=== PATIENT | male | born 1960 | race American Indian/Alaskan Native ===

== ENCOUNTER 2016-12-07 09:42 | Observation (INO) | payer MEDICARE, OTHER ==
[2016-12-07] MEDS ORDERED: Labetalol 5 mg/ml Inj 20ML IV STA ×2 (10:56→12:20)
[2016-12-07 11:08] LABS: ADD MANUAL DIFF? NO
--- NOTE | 2016-12-07 11:08 | ED PDOC ---
Arrival/HPI - General Chief Complaint: High Blood Pressure Time Seen by Provider: 12/07/16 10:55 Historian: Patient - History of Present Illness Narrative History of Present Illness (Text): 12/07/16 11:06 Cam Sanford is a 56 year old with a history of hypertension, asthma, left hip replacement and HIV, presents to the emergency department complaining of elevated blood pressure, intermittent chest pain and shortness of breath for the past 2 days. Patient states he is on 20 mg Lisinopril for past 2 because he ran out of medication. He also notes that he has been increasingly agitated over the past week, which is unlike him. He also complains of occasional episodes of dizziness which he characterizes as room spinning sensation. Denies fever, chills, nausea, vomiting, diarrhea, urinary symptoms, or any other complaints at this time. Time/Duration: < week (2 days ) Symptom Onset: Gradual Symptom Course: Intermittent Severity Level: Mild Activities at Onset: Light Past Medical History - Provider Review Nursing Documentation Reviewed: Yes - Infectious Disease Hx of Infectious Diseases: None - Tetanus Immunization Tetanus Immunization: Unknown - Cardiac Hx Hypertension: Yes - Pulmonary Hx Asthma: Yes - Neurological Hx Transient Ischemic Attacks (TIA): No - Musculoskeletal/Rheumatological Hx Arthritis: Yes Hx Falls: No - Genitourinary/Gynecological Hx Genitourinary Disorders: Yes Hx Urinary Tract Infection: Yes - Psychiatric Hx Substance Use: No - Surgical History Hx Joint Replacement: Yes (Left hip) - Anesthesia Hx Anesthesia: Yes Hx Anesthesia Reactions: No Family/Social History - Physician Review Nursing Documentation Reviewed: Yes Family/Social History: No Known Family HX Smoking Status: Light Smoker < 10 Cigarettes Daily Hx Alcohol Use: No Hx Substance Use: No Allergies/Home Meds Allergies/Adverse Reactions: Allergies seafood Allergy (Uncoded 12/07/16 10:07) RASH Home Medications: Home Meds Medication Instructions Recorded Confirmed Albuterol HFA [Ventolin HFA 90 0.09 mg IH PRN PRN 03/13/16 06/14/16 mcg/actuation (8 g)] Abacavir/Dolutegravir/Lamivudi 1 tab PO DAILY 03/16/16 06/14/16 [Triumeq Tablet] Aspirin [Aspirin EC] 81 mg PO DAILY 03/16/16 06/14/16 Atorvastatin Calcium [Lipitor] 20 mg PO DIN 03/16/16 06/14/16 Lisinopril/Hydrochlorothiazide 1 tab PO DAILY 03/16/16 06/14/16 [Zestoretic 20-25 mg Tablet] Review of Systems - Physician Review All systems were reviewed & negative as marked: Yes - Review of Systems Constitutional: Normal. absent: Fatigue, Fevers Eyes: absent: Vision Changes, Photophobia Respiratory: Cough. absent: SOB Cardiovascular: Chest Pain Gastrointestinal: Normal. absent: Abdominal Pain, Nausea, Vomiting, Appetite Changes Neurological: Dizziness (room spinning sensation ). absent: Headache Psychiatric: Normal Physical Exam Vital Signs Reviewed: Yes Vital Signs Temp Pulse Resp BP Pulse Ox 12/07/16 12:34 100 H 157/100 H 12/07/16 11:51 57 L 18 183/95 H 96 12/07/16 11:50 64 18 183/110 H 96 12/07/16 11:40 76 18 201/139 H 96 12/07/16 11:39 69 18 163/118 H 96 12/07/16 11:37 75 18 187/105 H 95 12/07/16 11:35 64 18 192/104 H 96 12/07/16 11:34 69 18 200/114 H 96 12/07/16 11:33 69 18 197/125 H 95 12/07/16 11:30 69 18 202/128 H 98 12/07/16 10:41 66 18 170/101 H 99 12/07/16 10:01 98.8 F 80 18 177/105 H 98 12/07/16 09:42 98.8 F 80 18 177/105 H 98 Temperature: Afebrile Blood Pressure: Hypertensive Pulse: Regular Respiratory Rate: Normal Appearance: Positive for: Well-Appearing, Non-Toxic, Comfortable Pain Distress: None Mental Status: Positive for: Alert and Oriented X 3 - Systems Exam Head: Present: Atraumatic, Normocephalic Pupils: Present: PERRL Conjunctiva: Present: Normal Respiratory/Chest: Present: Clear to Auscultation, Good Air Exchange. No: Respiratory Distress, Accessory Muscle Use Cardiovascular: Present: Regular Rate and Rhythm, Normal S1, S2. No: Murmurs Abdomen: Present: Normal Bowel Sounds. No: Tenderness, Distention, Peritoneal Signs Neurological: Present: GCS=15, CN II-XII Intact, Speech Normal Skin: Present: Warm, Dry, Normal Color. No: Rashes Psychiatric: Present: Alert, Oriented x 3, Normal Insight, Normal Concentration Medical Decision Making ED Course and Treatment: 12/07/16 11:17 Impression: A 56 year old male who presents to the emergency department complaining of elevated BP, dizziness, intermittent chest pain with shortness of breath for 2 days. Patient has not taken htn meds for 2 days. Plan: -- CT Head -- EKG -- Labs, cardiac enzymes -- Chest X-ray -- Urinalysis -- Reassess and disposition Progress Notes: EKG interpreted by me: NSR @ 68 bpm. Left ventricular hypertrophy. 12/07/16 12:42 Patient's BP improved after Labetolol 20mg IV. Second dose of 40mg IV was cancelled. BERNY Cowan and Alvin aware. PO medications ordered for further BP control. I called Dr. Dubois who patient states is his PMD but she states it's not her patient. He states that he hasn't seen her for a while. I discussed with Dr. Burnett who will accept patient on her service and requests Dr. Sue for Cardiology. - Critical Care Critical Care Minutes: 30 minutes - Lab Interpretations Lab Results: 12/07/16 10:55 12/07/16 10:55 Lab Results 12/07/16 10:55: WBC 4.0 L, RBC 4.49, Hgb 13.8 L, Hct 41.1 L, MCV 91.5, MCH 30.7 , MCHC 33.6, RDW 12.5, Plt Count 208, MPV 8.8, Gran % 64.7, Lymph % (Auto) 22.2 , [place] % (Auto) 9.8 H, Eos % (Auto) 2.5, Baso % (Auto) 0.8, Gran # 2.56, Lymph # 0.9 L, [place] # 0.4, Eos # 0.1, Baso # 0.03, PT 9.4 L, INR 0.87 L, APTT 25.4, Sodium 136, Potassium 4.1, Chloride 102, Carbon Dioxide 25, Anion Gap 13, BUN 20 , Creatinine 1.5 H, Est GFR ( Amer) 58, Est GFR (Non-Af Amer) 48, Random Glucose 103, Calcium 8.9, Magnesium 2.3 H, Total Bilirubin 0.7, AST 47, ALT 61 H , Alkaline Phosphatase 75, Lactate Dehydrogenase 607, Total Creatine Kinase 434 H, CK-MB (CK-2) 2.4, CK-MB (CK-2) % Cancelled, Troponin I 0.02 D, Total Protein 7.6, Albumin 4.1, Globulin 3.4, Albumin/Globulin Ratio 1.2 - RAD Interpretation Radiology Orders: 12/07/16 10:56 Brain [HEAD W/O CONTRAST] [CT] Stat CHEST PORTABLE [RAD] Stat - Medication Orders Current Medication Orders: Discontinued Medications Hydrochlorothiazide (Hydrodiuril) 25 mg PO STAT STA Stop: 12/07/16 12:21 Last Admin: 12/07/16 12:34 Dose: 25 MG Labetalol HCl (Trandate) 20 mg IV STAT STA Stop: 12/07/16 10:57 Last Admin: 12/07/16 11:37 Dose: 20 mg MAR Pulse and Blood Pressure Document 12/07/16 11:37 JOL (Rec: 12/07/16 11:38 [id number]) Pulse Pulse Rate (60-90) 90 Blood Pressure Blood Pressure (100/60-150/90) 212/106 eMAR Start Stop Document 12/07/16 11:37 JOL (Rec: 12/07/16 11:38 [id number]) Intravenous Solution Start Date 12/07/16 Start Time 11:35 End Date 12/07/16 End time 11:37 Total Infusion Time 2 Labetalol HCl (Trandate) 40 mg IV STAT STA Stop: 12/07/16 12:21 Last Admin: 12/07/16 12:34 Dose: Not Given Non-Admin Reason: BP Parameters Not Met [facility] Pulse and Blood Pressure Document 12/07/16 12:34 JOL (Rec: 12/07/16 12:34 [facility] [id number]) Pulse Pulse Rate (60-90) 100 Blood Pressure Blood Pressure (100/60-150/90) 157/100 Lisinopril (Zestril) 10 mg PO STAT STA Stop: 12/07/16 12:21 Last Admin: 12/07/16 12:34 Dose: 10 MG MAR Pulse and Blood Pressure Document 12/07/16 12:34 JOL (Rec: 12/07/16 12:34 [facility]-[id number]) Pulse Pulse Rate (60-90) 100 Blood Pressure Blood Pressure (100/60-150/90) 157/100 - Scribe Statement The provider has reviewed the documentation as recorded by the Junior Carpio Provider Attestation: All medical record entries made by the Sandhyaibe were at my direction and personally dictated by me. I have reviewed the chart and agree that the record accurately reflects my personal performance of the history, physical exam, medical decision making, and the department course for this patient. I have also personally directed, reviewed, and agree with the discharge instructions and disposition. Disposition/Present on Arrival - Present on Arrival Any Indicators Present on Arrival: No History of DVT/PE: No History of Uncontrolled Diabetes: No Urinary Catheter: No History of Decub. Ulcer: No History Surgical Site Infection Following: None - Disposition Have Diagnosis and Disposition been Completed?: Yes Diagnosis: Chest pain Disposition: HOSPITALIZED Disposition Time: 11:45 Patient Plan: Observation Patient Problems: Current Active Problems Problem Status Diagnosed Chest pain Acute Hypertension Acute Renal insufficiency Acute Condition: FAIR Discharge Instructions (ExitCare): Chest Pain (ED)
[2016-12-07 11:11] LABS: BASO # 0.03 K/mm3 (0.0-2.0); BASO % 0.8 % (0.0-3.0); EOS # 0.1 (0.0-0.7); EOS % 2.5 % (1.5-5.0); GRAN # 2.56 (1.4-6.5); GRAN % 64.7 % (50.0-68.0); HEMATOCRIT 41.1 % (42.0-52.0); LYMPH # 0.9 (1.2-3.4); LYMPH % 22.2 % (22.0-35.0); MEAN CELL VOLUME 91.5 fL (80.0-105.0); MEAN CORPUSCULAR HEMOGLOBIN 30.7 pg (25.0-35.0); MEAN CORPUSCULAR HGB CONC 33.6 g/dl (31.0-37.0); MEAN PLATELET VOLUME 8.8 fl (7.0-11.0); MONO # 0.4 (0.1-0.6); MONO % 9.8 % (1.0-6.0); PLATELET COUNT 208 10^3/uL (120.0-450.0); RED CELL DISTRIBUTION WIDTH 12.5 % (11.5-14.5)
[2016-12-07 11:22] LABS: ALB/GLOB RATIO 1.2 (1.1-1.8); BILIRUBIN,TOTAL 0.7 mg/dL (0.2-1.3); CALCIUM 8.9 mg/dL (8.4-10.5); INR 0.87 (0.93-1.08); MAGNESIUM 2.3 mg/dL (1.7-2.2); PARTIAL THROMBOPLASTIN TIME 25.4 Seconds (23.7-30.8); POTASSIUM 4.1 mmol/L (3.6-5.0); TOTAL PROTEIN 7.6 g/dL (5.8-8.3)
[2016-12-07 11:32] LABS: TROPONIN I 0.02 ng/mL
--- NOTE | 2016-12-07 11:34 | CT ---
PROCEDURE: CT HEAD WITHOUT CONTRAST. HISTORY: rios and dizziness and htn COMPARISON: None available. TECHNIQUE: Axial computed tomography images were obtained through the head/brain without intravenous contrast. Radiation dose: Total exam DLP = 745.73 mGy-cm. This CT exam was performed using one or more of the following dose reduction techniques: Automated exposure control, adjustment of the mA and/or kV according to patient size, and/or use of iterative reconstruction technique. FINDINGS: HEMORRHAGE: No acute parenchymal, subarachnoid nor extra-axial hemorrhage. . BRAIN: Mild chronic periventricular white matter ischemic changes seen extending peripherally into the deep and to a lesser degree subcortical white matter both cerebral hemispheres. In addition, there may often so be a few scattered chronic bilateral basal nuclei lacunar type infarcts. Mild generalized volume loss. VENTRICLES: Ventricles are mildly enlarged due to atrophy however no evidence of obstructive hydrocephalus. CALVARIUM: No acute calvarial fractures. Note made of what probably represents right superior frontal scalp scar. PARANASAL SINUSES: Unremarkable as visualized. No significant inflammatory changes. MASTOID AIR CELLS: Unremarkable as visualized. No inflammatory changes. OTHER FINDINGS: All fracture old fracture air cells are occupied by herniated orbital fat. Mild medial displacement of the right medial rectus muscle. IMPRESSION: No acute intracranial hemorrhage. Mild chronic white matter ischemic changes. In addition, there may also be a few scattered chronic bilateral basal nuclei lacunar type infarcts. . Mild generalized volume loss.
--- NOTE | 2016-12-07 12:17 | RAD ---
HISTORY: chest pain COMPARISON: No prior. FINDINGS: LUNGS: No active pulmonary disease. PLEURA: No significant pleural effusion identified, no pneumothorax apparent. CARDIOVASCULAR: Normal. OSSEOUS STRUCTURES: No significant abnormalities. VISUALIZED UPPER ABDOMEN: Normal. OTHER FINDINGS: None. IMPRESSION: No active disease.
[2016-12-07 13:14] VITALS: O2SAT 100
[2016-12-07] MEDS: LAMIVUDI PO SCH (13:26)
[2016-12-07] MEDS: DOLUTEGRAVIR PO SCH (13:26)
[2016-12-07] MEDS: ABACAVIR PO SCH (13:26)
[2016-12-07 13:37] LABS: CHOLESTEROL 220 mg/dL (130-200)
[2016-12-07 15:50] VITALS: BMI 28.7
[2016-12-07] MEDS ORDERED: Pneumococcal 23-Valent Vaccine IM ONE (15:50)
--- NOTE | 2016-12-07 20:36 | HP ---
HISTORY OF PRESENT ILLNESS: The patient is a 56-year-old, seen and examined while he was in the [facility] Room. The patient came to Emergency Room because of chest pain and having headache and feeling dizzy. The patient states he lives in [facility] and has been bothered a lot. He has been screaming and yelling, has been mean to people. He did feel that he must be having high blood pressure. He admits being noncompliant with the medication. He states he felt that his blood pressure was high, so he c jaymie to Emergency Room for further evaluation. He did have some shortness of breath going on for the past 2 days. He used to go to Dr. Dubois, but stopped going and admits not being compliant with his m edication. PAST MEDICAL HISTORY: Significant for: 1. Hypertension. 2. Bronchial asthma. 3. Being HIV positive for almost 10 years and he goes to [facility] for his medication. ALLERGIES: HE IS ALLERGIC TO SEAFOOD. MEDICATIONS AT HOME: He is on Mobic 15 mg as needed. He is on lisinopril 20/25 mg daily, atorvastat in 20 mg daily, aspirin 81 daily and he takes Triumeq tablet 1 tablet daily. SOCIAL HISTORY: He lives in [facility]. Active smoker, socially drinks. REVIEW OF SYSTEMS: Significant for headache, and having chest discomfort, but better now. PHYSICAL EXAMINATION: GENERAL: He is awake and alert, communicative. VITAL SIGNS: He is afebrile, pulse 65, respirations 20, blood pressure 154/87. When he came in, his blood pressure was 212/106. LUNGS: Bilateral good airflow, no rhonchi or crackle. HEART: S1, S2 audible. No murmur. ABDOMEN: Soft, obese, nontender, no rebound, no guarding. NEUROLOGIC: He is awake and alert, communicative. LABORATORY DATA: WBC 4.0, hemoglobin 13.8, hematocrit 41, platelets 208. PT is 9.4. INR 0.87. Yulia daija: Sodium 136, potassium 4.1, chloride 102, CO2 of 25, BUN 20, creatinine 1.5, blood sugar of 1 03. Magnesium 2.3, ALT 61, AST 47. CPK 434. Troponin 0.02. Cholesterol 220, HDL 97. ASSESSMENT: 1. Chest pain, rule out underlying coronary artery disease. 2. HIV positive. 3. Bronchial asthma. 4. Hypertension. 5. Status post left hip replacement. PLAN: The patient will be placed in observation and telemetry. We will monitor blood pressure and s tart him on nebulizer treatment. Restart his HIV medication. Dr. Sue for consult. Order for echoc ardiogram in a.m. Chika Burnett MD cc: [phone] TT: 12/07/2016 20:35:54 mn
[2016-12-08 02:57] VITALS: RESP 18
[2016-12-08 07:21] LABS: ALB/GLOB RATIO 1.1 (1.1-1.8); ALKALINE PHOSPHATASE 54 U/L (38-133); ALT/SGPT 58 U/L (7-56); AST/SGOT 39 U/L (15-59); BILIRUBIN,TOTAL 0.7 mg/dL (0.2-1.3); BLOOD UREA NITROGEN 21 mg/dL (7-21); CALCIUM 8.7 mg/dL (8.4-10.5); CARBON DIOXIDE 26 mmol/L (21-33); CHLORIDE 102 mmol/L (98-107); GFR AFRICAN-AMERICAN > 60; GLUCOSE,RANDOM 111 mg/dL (70-110); MAGNESIUM 2.1 mg/dL (1.7-2.2); PHOSPHOROUS 3.8 mg/dL (2.5-4.5); POTASSIUM 3.9 mmol/L (3.6-5.0); SODIUM 133 mmol/L (132-148)
[2016-12-08 07:28] LABS: FREE T4 0.91 ng/dL (0.78-2.19)
[2016-12-08 07:41] LABS: THYROID STIMULATING HORMONE 0.49 mIU/mL (0.46-4.68)
[2016-12-08] MEDS: ABACAVIR PO SCH (09:57)
[2016-12-08] MEDS: LAMIVUDI PO SCH (09:57)
[2016-12-08] MEDS: DOLUTEGRAVIR PO SCH (09:57)
[2016-12-08] MEDS ORDERED: [UNRECOGNIZED DRUG - OTHER] PO SCH (10:00)
[2016-12-08] MEDS ORDERED: HYDROCHLOROTHIAZIDE PO SCH (10:00)
[2016-12-08] MEDS ORDERED: LISINOPRIL PO SCH (10:00)
--- NOTE | 2016-12-08 11:02 | CON ---
DATE: 12/08/2016 HISTORY OF PRESENT ILLNESS: The patient is a 56-year-old male who presents with atypical chest pain associated with elevated blood pressure. The patient has been noncompliant with his medications. PAST MEDICAL HISTORY: Also includes COPD and which he continues to smoke. There is a question whether he has hypercholesterolemia in addition. The patient's cardiac workup in the past has included a stress test done in 03/2016 where his ejection fraction was 80% with no perfusion defects noted. He denies diabetes mellitus. The patient has had HIV in the past. SOCIAL HISTORY: He is an active smoker. REVIEW OF SYSTEMS: A 14-point review of systems was reviewed in detail. There is no further cardiac symptomatology. However, the patient is aggravated from his home situation with 3 girlfriends going to the patient as well as his neighbors who are making too much noise for him. PHYSICAL EXAMINATION: VITAL SIGNS: Blood pressure is 161/100. Heart rate is in the 70s. NECK: Negative JVD. LUNGS: Without rales. HEART: Reveals S1, S2. EXTREMITIES: Without edema. EKG shows normal sinus rhythm with no acute changes. LABORATORIES: Troponins are negative x 2. Creatinine has gone from 1.5 to 1.4 on lisinopril, hemogl obin is 13.8. Echocardiogram shows normal LV function. IMPRESSION: 1. Accelerated hypertension secondary to noncompliance with medications. 2. Chronic obstructive pulmonary disease. 3. Hypercholesterolemia. 4. Left ventricular hypertrophy. 5. History of human immunodeficiency virus in the past. Given these findings, I agree with his current medical regimen. His problem is that he needs to take his medications at home. I have spent some time talking to him about the risk of not taking medications and the potential end-organ damage with his hypertension. T he patient seems to understand. In addition, given his rhonchi on his physical exam, I have advised the patient to stop smoking. Kannan Sue MD cc: [phone] TT: 12/08/2016 11:01:23 Confirmation # [id number] Dictation # [id number] tn
[2016-12-08 12:35] VITALS: BP 158/92; PULSE 61; TEMP 98.2
--- NOTE | 2016-12-08 13:53 | DS ---
The patient is a 56-year-old, seen and examined, lying in bed, comfortable. No chest pain, no shortn ess of breath. Eating and tolerating. PHYSICAL EXAMINATION: VITAL SIGNS: The patient is afebrile, pulse 70, respirations 18, blood pressure . LUNGS: Bilateral fair airflow, no rhonchi or crackle. HEART: S1, S2 audible. No murmur. ABDOMEN: Soft, obese, nontender, no rebound, no guarding. NEUROLOGIC: He is awake and alert, communicative, ambulatory. LABORATORY EXAM: His creatinine has improved from 1.5 to 1.4. His CPK is 434. Cholesterol is 220. LDL is 81. HDL is 97. ASSESSMENT: 1. Status post uncontrolled hypertension. 2. Human immunodeficiency virus positive. 3. Hyperlipidemia. 4. Active smoker. PLAN: The patient is going to be discharged home on Norvasc 10 mg in the evening and lisinopril 20 m g with hydrochlorothiazide 12.5 in a.m. He will be continued on Lipitor 20 mg daily at noontime. He will follow with his HIV doctor for refills. He is advised to quit smoking and he is advised to fol low up for regular appointment. He will follow up in office in a week to check if the medication is working and then he will be following with me every 3 months. Chika Burnett MD cc: [phone] TT: 12/08/2016 13:51:51 wv
--- NOTE | 2016-12-08 17:14 | CARD ---
APPROVED REPORT EXAM: Two-dimensional and M-mode echocardiogram with Doppler and color Doppler. INDICATION Dizziness and Vertigo 2D DIMENSIONS Left Atrium (2D)4.9 (1.6-4.0cm)IVSd1.4 (0.7-1.1cm) LVDd4.4 (3.9-5.9cm)PWd1.3 (0.7-1.1cm) LVDs3.1 (2.5-4.0cm)FS (%) 30.2 % LVEF (%)57.8 (>50%) M-Mode DIMENSIONS Aortic Root3.40 (2.2-3.7cm)Aortic Cusp Exc.2.00 (1.5-2.0cm) Aortic Valve AoV Peak Bbhgrmdf562.0cm/Juan Carlos Peak GR.8mmHg Mitral Valve MV E Mzpamvuy08.7cm/sMV A Oyieieiz97.0cm/sE/A ratio0.8 TDI Lateral E' Peak V7.70cm/sMedial E' Peak V5.95cm/sE/Lateral E'7.6 E/Medial E'9.9 Pulmonary Valve PV Peak Xxjusfgo30.9cm/sPV Peak Grad.3mmHg Tricuspid Valve TR Peak [id number]/sRAP [id number] Peak Gr.17mmHg [id number] LEFT VENTRICLE The left ventricle is normal size. There is mild to moderate concentric left ventricular hypertrophy. The left ventricular function is normal. The left ventricular ejection fraction is within the normal range. There is normal LV segmental wall motion. Transmitral Doppler flow pattern is Grade I-abnormal relaxation pattern. RIGHT VENTRICLE The right ventricle is normal size. There is normal right ventricular wall thickness. The right ventricular systolic function is normal. ATRIA The left atrium is mildly dilated. The right atrium size is normal. AORTIC VALVE The aortic valve is mildly thickened. No aortic regurgitation is present. There is no aortic valvular stenosis. MITRAL VALVE The mitral valve is normal in structure. There is no mitral valve regurgitation noted. TRICUSPID VALVE There is no pulmonary hypertension. GREAT VESSELS The aortic root is normal in size. The IVC is normal in size and collapses >50% with inspiration. PERICARDIAL EFFUSION There is a trace loculated anterior pericardial effusion. <Conclusion> The left ventricle is normal size. There is mild to moderate concentric left ventricular hypertrophy. The left ventricular function is normal. The left ventricular ejection fraction is within the normal range. There is normal LV segmental wall motion. Transmitral Doppler flow pattern is Grade I-abnormal relaxation pattern.
--- NOTE | 2016-12-08 18:10 | CARD ---
APPROVED REPORT EKG Measurement Heart [id number] <Conclusion> Normal sinus rhythm Minimal voltage criteria for LVH, may be normal variant Borderline ECG
== END 2016-12-08 14:06 | disposition home or self-care (01) ==
LOC: ED 09:42 → ERH 12:38 → 2RNO 13:43
PROVIDERS: ADMIT Internal Medicine; ATTEND Internal Medicine
DX: R07.89 Other chest pain (principal); B20 Human immunodeficiency virus [HIV] disease; I11.9 Hypertensive heart disease without heart failure; J45.909 Unspecified asthma, uncomplicated; F17.200 Nicotine dependence, unspecified, uncomplicated; E78.00 Pure hypercholesterolemia, unspecified; E78.5 Hyperlipidemia, unspecified; N28.9 Disorder of kidney and ureter, unspecified; Z96.642 Presence of left artificial hip joint; Z91.14 Patient's other noncompliance with medication regimen; Z79.82 Long term (current) use of aspirin; Z91.013 Allergy to seafood
CPT/HCPCS: 36415; 70450; 71010; 80053; 80061; 82550; 82553; 83036; 83615; 83735; 84100; 84439; 84443; 84484; 85025; 85610; 85730; 93005; 93306; 99285; G0378

== ENCOUNTER 2017-03-06 19:53 | Observation (INO) | payer MEDICARE, OTHER ==
[2017-03-06 20:04] VITALS: BP 143/94; PULSE 89; RESP 19; TEMP 98.2; O2SAT 97; BMI 27.8
--- NOTE | 2017-03-06 20:31 | ED PDOC ---
Arrival/HPI - General Historian: Patient - History of Present Illness Symptom Onset: Sudden Symptom Course: Unchanged Activities at Onset: Rest Context: Home <Torey Tsang - Last Filed: 03/06/17 22:27> <Oleg Haider - Last Filed: 03/07/17 01:19> - General Chief Complaint: Alcohol Ingestion Time Seen by Provider: 03/06/17 20:17 - History of Present Illness Narrative History of Present Illness (Text): 03/06/17 20:32 Patient presents with slurring of speech and alcohol on breath. Admits to drinking throughout the day. Patient denies suicidal or homicidal ideations. Denies any trauma or injury. (Torey Tsang) Past Medical History - Provider Review Nursing Documentation Reviewed: Yes - Infectious Disease Hx of Infectious Diseases: None - Tetanus Immunization Tetanus Immunization: Unknown - Cardiac Hx Cardiac Disorders: Yes Hx Hypertension: Yes - Pulmonary Hx Respiratory Disorders: Yes (SMOKES PPD CIG A DAY) Hx Asthma: Yes - Neurological Hx Neurological Disorder: Yes Hx Dizziness: Yes Hx Transient Ischemic Attacks (TIA): No - HEENT Hx HEENT Disorder: No - Renal Hx Renal Disorder: No - Endocrine/Metabolic Hx Endocrine Disorders: No - Hematological/Oncological Hx Blood Disorders: Yes - Integumentary Hx Dermatological Disorder: No - Musculoskeletal/Rheumatological Hx Musculoskeletal Disorders: Yes (L HIP REPLACEMENT) Hx Arthritis: Yes Hx Falls: Yes - Gastrointestinal Hx Gastrointestinal Disorders: No - Genitourinary/Gynecological Hx Genitourinary Disorders: Yes Hx Urinary Tract Infection: Yes - Psychiatric Hx Psychophysiologic Disorder: Yes (SMOKES CIGARETTES,OCCASIONAL DRINK OF ALCOHOL) Hx Substance Use: No - Surgical History Hx Joint Replacement: Yes (Left hip) - Anesthesia Hx Anesthesia: Yes Hx Anesthesia Reactions: No <Torey Tsang - Last Filed: 03/06/17 22:27> Family/Social History - Physician Review Nursing Documentation Reviewed: Yes Family/Social History: No Known Family HX Smoking Status: Current Some Days Smoker Hx Alcohol Use: No Hx Substance Use: No <Torey Tsang - Last Filed: 03/06/17 22:27> Allergies/Home Meds <Torey Tsang - Last Filed: 03/06/17 22:27> <Oleg Haider - Last Filed: 03/07/17 01:19> Allergies/Adverse Reactions: Allergies seafood Allergy (Uncoded 03/06/17 20:04) RASH Home Medications: Home Meds Medication Instructions Recorded Confirmed Albuterol HFA [Ventolin HFA 90 0.09 mg IH PRN PRN 03/13/16 03/06/17 mcg/actuation (8 g)] Abacavir/Dolutegravir/Lamivudi 1 tab PO DAILY 03/16/16 03/06/17 [Triumeq Tablet] Aspirin [Aspirin EC] 81 mg PO DAILY 03/16/16 03/06/17 Lisinopril/Hydrochlorothiazide 1 tab PO DAILY 03/16/16 03/06/17 [Zestoretic 20-25 mg Tablet] Review of Systems - Physician Review All systems were reviewed & negative as marked: Yes - Review of Systems Constitutional: absent: Fevers Psychiatric: absent: Suicidal Ideation, Other (homicidal ideation) <Torey Tsang - Last Filed: 03/06/17 22:27> Physical Exam Vital Signs Reviewed: Yes Temperature: Afebrile Blood Pressure: Hypertensive Pulse: Regular Respiratory Rate: Normal Appearance: Positive for: Well-Appearing, Non-Toxic, Comfortable Pain Distress: None Mental Status: Positive for: Alert and Oriented X 3 <Torey Tsang - Last Filed: 03/06/17 22:27> <MelizaOleg - Last Filed: 03/07/17 01:19> - Physical Exam Narrative Physical Exam (Text): 03/06/17 20:30 Patient is in no distress, no airway compromise, breathing without difficulty, good insp/exp effort. No signs of head/torso/extremity trauma. Following commands without difficulty. Head: Present: Atraumatic, Normocephalic. No: Tenderness, Contusion, Swelling, Ecchymosis, Abrasion, Laceration Pupils: Present: PERRL Extroacular Muscles: Present: EOMI Conjunctiva: Present: Normal Mouth: Present: Moist Mucous Membranes Neck: Present: Normal Range of Motion. No: MIDLINE TENDERNESS, Paraspinal Tenderness Respiratory/Chest: Present: Clear to Auscultation, Good Air Exchange. No: Respiratory Distress, Accessory Muscle Use Cardiovascular: Present: Regular Rate and Rhythm, Normal S1, S2. No: Murmurs Abdomen: Present: Normal Bowel Sounds. No: Tenderness, Distention, Peritoneal Signs, Rebound, Guarding Back: Present: Normal Inspection. No: Midline Tenderness, Paraspinal Tenderness Upper Extremity: Present: Normal Inspection. No: Cyanosis, Edema Lower Extremity: Present: Normal Inspection. No: Edema Neurological: Present: GCS=15, CN II-XII Intact Skin: Present: Warm, Dry, Normal Color. No: Rashes Lymphatic: Present: OX3, NI, NC Psychiatric: Present: Alert. Absent: Agitated No: suicidal/homicidal ideations (Torey Tsang) Vital Signs Temp Pulse Resp BP Pulse Ox 03/06/17 20:03 98.2 F 89 19 143/94 H 97 Medical Decision Making - Lab Interpretations I have reviewed the lab results: Yes - EKG Interpretation Interpreted by ED Physician: Yes Type: 12 lead EKG <Torey Tsang - Last Filed: 03/06/17 22:27> <Oleg Haider - Last Filed: 03/07/17 01:19> ED Course and Treatment: 03/06/17 20:28 Impression: A 56 year old female with alcohol intoxication. Patient is in no distress, no airway compromise, breathing without difficulty, good insp/exp effort. No signs of head/torso/extremity trauma. Following commands without difficulty. Denies any suicidal or homicidal ideation. Plan: -- EKG -- labs -- Urinalysis -- Reassess and disposition Prior Visits: Notes and results from previous visits were reviewed. Patient last reported to the emergency department on 12/07/16 for evaluation of elevated blood pressure, intermittent chest pain and shortness of breath. Progress Notes: Patient requesting to speak with PES counselor, no SI, no HI. 03/06/17 20:47 EKG shows NSR at [address]-segment elevations, normal intervals. Interpreted by me. (Torey Tsang) ED OBSERVATION Date of observation admission: 03/06/17 Time of observation admission: 20:10 <Torey Tsang - Last Filed: 03/06/17 22:27> Discharge: Yes <Oleg Haider - Last Filed: 03/07/17 01:19> - Observation admission statement Patient is being placed in observation because:: alcohol intoxication (Torey Tsang) - Goals of Observation Goals of observation are:: pending sobriety and PES evaluation (Torey Tsang) - Progress Note Progress Note: 03/06/17 22:[address] Haider in stable condition pending sobriety and PES evaluation (Torey Tsang) 03/06/17 22:40 Case endorsed to me by Dr. Tsang pending sobriety and PES evaluation. 03/07/17 00:58 Per nurse, patient eloped the emergency department. [place] [employer] notified. (Oleg Haider) - Scribe Statement The provider has reviewed the documentation as recorded by the Scribe <Torey Tsang - Last Filed: 03/06/17 22:27> <Oleg Haider - Last Filed: 03/07/17 01:19> - Scribe Statement Chery Le Provider Scribe Attestation: All medical record entries made by the Scribe were at my direction and personally dictated by me. I have reviewed the chart and agree that the record accurately reflects my personal performance of the history, physical exam, medical decision making, and the department course for this patient. I have also personally directed, reviewed, and agree with the discharge instructions and disposition. (Torey Tsang) Disposition/Present on Arrival - Present on Arrival Any Indicators Present on Arrival: No History of DVT/PE: No History of Uncontrolled Diabetes: No Urinary Catheter: No History of Decub. Ulcer: No History Surgical Site Infection Following: None - Disposition Disposition Time: 20:10 <Torey Tsang - Last Filed: 03/06/17 22:27> - Present on Arrival Any Indicators Present on Arrival: No - Disposition Have Diagnosis and Disposition been Completed?: Yes <Oleg Haider - Last Filed: 03/07/17 01:19> - Disposition Diagnosis: Alcohol abuse Disposition: ELOPEMENT - ER ONLY Condition: STABLE
[2017-03-06 21:26] LABS: ALB/GLOB RATIO 1.4 (1.1-1.8); ALBUMIN 4.5 g/dL (3.0-4.8); CALCIUM 8.8 mg/dL (8.4-10.5)
[2017-03-06 21:27] LABS: SALICYLATE < 1 mg/dL (2.0-20.0)
[2017-03-06 21:31] LABS: ACETAMINOPHEN < 10.0 ug/ml (10.0-20.0); BASO # 0.03 K/mm3 (0.0-2.0); BASO % 0.5 % (0.0-3.0); EOS # 0.2 (0.0-0.7); GRAN # 3.23 (1.4-6.5); GRAN % 49.1 % (50.0-68.0); HEMOGLOBIN 13.5 gm/dL (14.0-18.0); LYMPH # 2.5 (1.2-3.4); LYMPH % 38.7 % (22.0-35.0); MEAN CELL VOLUME 88.6 fL (80.0-105.0); MEAN CORPUSCULAR HEMOGLOBIN 30.3 pg (25.0-35.0); MEAN CORPUSCULAR HGB CONC 34.2 g/dl (31.0-37.0); MEAN PLATELET VOLUME 8.4 fl (7.0-11.0); MONO # 0.6 (0.1-0.6); MONO % 8.7 % (1.0-6.0); PLATELET COUNT 202 10^3/uL (120.0-450.0); RBC 4.46 10^6/uL (3.5-6.1); RED CELL DISTRIBUTION WIDTH 13.3 % (11.5-14.5); WHITE BLOOD COUNT 6.6 10^3/ul (4.5-11.0)
[2017-03-06 21:32] LABS: URINE BILIRUBIN NEGATIVE (NEGATIVE); URINE BLOOD TRACE-INTACT (NEGATIVE); URINE GLUCOSE (UA) NEGATIVE (NEGATIVE); URINE LEUKOCYTE ESTERASE NEGATIVE Leu/uL (NEGATIVE); URINE NITRATE NEGATIVE (NEGATIVE); URINE PROTEIN 30 mg/dL (<30 mg/dL); URINE UROBILINOGEN 0.2 E.U./dL (<1 E.U./dL)
[2017-03-06 21:33] LABS: URINE APPEARANCE CLEAR (CLEAR); URINE COLOR YELLOW (YELLOW)
[2017-03-06 21:35] LABS: BARBITURATES, UR NEGATIVE (NEGATIVE); BENZODIAZEPINES, UR NEGATIVE (NEGATIVE); OPIATES, UR NEGATIVE (NEGATIVE); PHENCYCLIDINE, UR NEGATIVE (NEGATIVE)
[2017-03-06 22:03] LABS: URINE EPITHELIAL CELLS 0 - 2 /hpf (0-5); URINE WBC 0 - 2 /hpf (0-6)
--- NOTE | 2017-03-07 08:46 | CARD ---
APPROVED REPORT EKG Measurement Heart [id number] <Conclusion> Normal sinus rhythm Nonspecific T wave abnormality Prolonged QT Abnormal ECG
== END 2017-03-07 01:18 | disposition home or self-care (01) ==
LOC: ED 19:53 → EROBSV 20:20
PROVIDERS: ADMIT Emergency Medicine; ATTEND Emergency Medicine
DX: F10.10 Alcohol abuse, uncomplicated (principal); I10 Essential (primary) hypertension; Z72.0 Tobacco use
CPT/HCPCS: 36415; 80053; 81001; 85025; 93005; 99283; G0378; G0480

== ENCOUNTER 2017-06-25 11:09 | Emergency (ER) | payer MEDICARE ==
[2017-06-25 11:17] VITALS: BMI 29.2
[2017-06-25 11:20] VITALS: BP 124/83; PULSE 87; RESP 18; TEMP 98.7; O2SAT 98
[2017-06-25] MEDS ORDERED: Naproxen 550 mg Tab PO STA (11:48)
--- NOTE | 2017-06-25 11:59 | ED PDOC ---
Arrival/HPI - General Chief Complaint: Finger,Hand,&Wrist Time Seen by Provider: 06/25/17 11:34 Historian: Patient - History of Present Illness Narrative History of Present Illness (Text): 06/25/17 12:00 57 yo M c/o several month h/o L wrist pain. Reports h/o injury to the same wrist 1 year ago. Otherwise: (-) fever, (-) decrease in ROM, (-) swelling, (-) redness, (-) numbness, (-) other injury. Past Medical History - Provider Review Nursing Documentation Reviewed: Yes - Infectious Disease Hx of Infectious Diseases: None - Tetanus Immunization Tetanus Immunization: Unknown - Cardiac Hx Cardiac Disorders: Yes Hx Hypertension: Yes - Pulmonary Hx Respiratory Disorders: Yes (SMOKES PPD CIG A DAY) Hx Asthma: Yes - Neurological Hx Neurological Disorder: Yes Hx Dizziness: Yes Hx Transient Ischemic Attacks (TIA): No - HEENT Hx HEENT Disorder: No - Renal Hx Renal Disorder: No - Endocrine/Metabolic Hx Endocrine Disorders: No - Hematological/Oncological Hx Blood Disorders: Yes - Integumentary Hx Dermatological Disorder: No - Musculoskeletal/Rheumatological Hx Musculoskeletal Disorders: Yes (L HIP REPLACEMENT) Hx Arthritis: Yes Hx Falls: Yes - Gastrointestinal Hx Gastrointestinal Disorders: No - Genitourinary/Gynecological Hx Genitourinary Disorders: Yes Hx Urinary Tract Infection: Yes - Psychiatric Hx Psychophysiologic Disorder: Yes (SMOKES CIGARETTES,OCCASIONAL DRINK OF ALCOHOL) Hx Substance Use: No - Surgical History Hx Joint Replacement: Yes (Left hip) - Anesthesia Hx Anesthesia: Yes Hx Anesthesia Reactions: No Family/Social History - Physician Review Nursing Documentation Reviewed: Yes Family/Social History: Unknown Family HX Smoking Status: Current Some Days Smoker Hx Alcohol Use: No Hx Substance Use: No Allergies/Home Meds Allergies/Adverse Reactions: Allergies seafood Allergy (Intermediate, Uncoded 06/25/17 11:17) ANAPHYLAXIS Home Medications: Home Meds Medication Instructions Recorded Confirmed Albuterol HFA [Ventolin HFA 90 0.09 mg IH PRN PRN 03/13/16 06/25/17 mcg/actuation (8 g)] Abacavir/Dolutegravir/Lamivudi 1 tab PO DAILY 03/16/16 06/25/17 [Triumeq Tablet] Aspirin [Aspirin EC] 81 mg PO DAILY 03/16/16 06/25/17 Lisinopril/Hydrochlorothiazide 1 tab PO DAILY 03/16/16 06/25/17 [Zestoretic 20-25 mg Tablet] Review of Systems - Review of Systems Constitutional: Normal. absent: Fatigue, Weight Change, Fevers Musculoskeletal: Normal, Arthralgias. absent: Back Pain, Neck Pain Skin: Normal. absent: Rash, Pruritis, Skin Lesions Physical Exam - Physical Exam Narrative Physical Exam (Text): 06/25/17 12:00 GENERAL APPEARANCE: Patient is awake, alert, oriented x 3, in no acute distress. SKIN: Warm, dry; (-) cyanosis. WRIST: (-) Tenderness, (-) swelling, (-) ecchymosis of L wrist. (-) deformity. (-) snuff-box tenderness. (-) distal neurovascular deficit. Elbow , hand and digits: (-) tenderness. Vital Signs Temp Pulse Resp BP Pulse Ox 06/25/17 11:19 98.7 F 87 18 124/83 98 Medical Decision Making ED Course and Treatment: 06/25/17 11:54 57 yo M c/o several month h/o L wrist pain. Reports h/o injury to the same wrist 1 year ago. Previous medical records reviewed and patient was seen in this emergency room on 06/14/16 for fall, had XR of the Lt. wrist, which showed degenerative changes around scaphoid. Plan : - XR L wrist - Naprosyn PO XR left wrist: : (+) increased djd to the distal lateral aspect of the distal radius and scaphoid, compared to prior XR, (-) acute fracture, (-) dislocation, as read by PA. Patient advised that official radiology read of XR is still pending and will call the patient if there is any discrepancy within 24 hours. X-ray results discussed with the patient in great detail. Miguel wrap applied to the left wrist. Dx of arthritis d/w the patient. Patient instructed to follow up with ortho referral in 1-2 days without fail for further evaluation. Advised to take otc tylenol for pain. Return to the emergency room at any time for any new or worsening symptoms. Patient states he fully agrees with and understands discharge instructions. States that he agrees with the plan and disposition. Verbalized and repeated discharge instructions and plan. I have given the patient opportunity to ask any additional questions. 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 Disposition/Present on Arrival - Present on Arrival Any Indicators Present on Arrival: No History of DVT/PE: No History of Uncontrolled Diabetes: No Urinary Catheter: No History of Decub. Ulcer: No History Surgical Site Infection Following: None - Disposition Have Diagnosis and Disposition been Completed?: Yes Diagnosis: Wrist pain, left Disposition: HOME/ ROUTINE Disposition Time: 12:15 Patient Plan: Discharge Condition: STABLE Discharge Instructions (ExitCare): Wrist Injury (ED) Print Language: MAORI Additional Instructions: Thank you for letting us take care of you today. You were treated for L wrist pain. The emergency medical care you received today was directed at your acute symptoms. Take over the counter tylenol for pain. It may take several days for your symptoms to resolve. Return to the Emergency Department if your symptoms worsen, do not improve, or if you have any other problems. Please contact orthopedic referral in 2 days for re-evaluation and follow up. Bring any paperwork you were given at discharge with you along with any medications you are taking to your follow up visit. Our treatment cannot replace ongoing medical care by a primary care provider (PCP) outside of the emergency department. Thank you for allowing the [facility] team to be part of your care today. If you had an X-Ray : A Radiologist will review the ED reading if any change in treatment is needed we will contact you. Referrals: PCP,NO [Primary Care Provider] - Follow up with primary Stephen Jeff MD [Staff Provider] - Follow up with primary Forms: [employer] ([place])
--- NOTE | 2017-06-25 14:01 | RAD ---
PROCEDURE: Left Wrist Radiographs. HISTORY: pain COMPARISON: 06/14/2016 FINDINGS: BONES: Normal. No fracture. JOINTS: There is bony sclerosis and deformity of the scaphoid bone and small bony fragments and degenerative changes in the adjacent radius. There is also widening of the distance between the scaphoid and lunate consistent with ligament tear. Degenerative changes have progressed since the prior exam SOFT TISSUES: Normal. OTHER FINDINGS: None. IMPRESSION: There is bony sclerosis and deformity of the scaphoid bone and small bony fragments and degenerative changes in the adjacent radius. There is also widening of the distance between the scaphoid and lunate consistent with ligament tear
== END 2017-06-25 12:32 | disposition home or self-care (01) ==
LOC: ED 11:09
DX: M25.532 Pain in left wrist (principal)